=== PATIENT | female | born 1955 | race Caucasian/White ===

== ENCOUNTER → 2018-11-14 | Day surgery (SDC) | payer MEDICARE ==
[2018-11-08 10:46] VITALS: BMI 25.1
[~2018-11-14] MED LIST: BACITRACIN OINT 1 EACH PACKET TOPICAL ONE; CLINDAMYCIN 600 MG in DEXTROSE 5% IN WATER 50 ML IVPB ONE; DEXAMETHASONE SOD PHOSPHATE 4 MG/ML 1 ML VIAL IV ONE; FAMOTIDINE 20 MG/2 ML VIAL IV ONE; LACTATED RINGERS 1,000 ML IV SCH; LIDOCAINE 1% 20 ML VIAL (10MG/ML) FOR IV START IV ONE; LIDOCAINE 1% INJ 10MG/ML (20 ML MDV) ONE; LIDOCAINE 1%-EPI 1:100,000 20 ML VIAL SQ ONE; MIDAZOLAM 2 MG/2 ML VIAL IVP ONE; MIDAZOLAM 2 MG/2 ML VIAL ONE; ONDANSETRON 4 MG/2 ML VIAL IVP ONE; PROPOFOL 10 MG/ML 20 ML VIAL IV ONE; SODIUM BICARB 8.4% 50 ML VIAL (1 MEQ/ML) MISCELLANE ONE; SUCCINYLCHOLINE CHLORIDE 100 MG/5 ML SYR IV ONE; ePHEDrine SULFATE/0.9% NACL/PF 50 MG/5 ML SYRINGE IV ONE; fentaNYL (PF) 50 MCG/ML 2 ML AMP ONE; traMADol 50 MG TAB PO ONE
--- NOTE | 2018-11-14 10:53 | P.OP ---
Date of Procedure: 11/14/18 Preoperative Diagnosis: Left preauricular nodule Postoperative Diagnosis: Same Procedure(s) Performed: Excision left preauricular nodule with EMG facial nerve monitoring Anesthesia: KAITYA Surgeon: Wili Neal Estimated Blood Loss (ml): 2 Pathology: other (Left preauricular nodule) Condition: stable Disposition: PACU Indications for Procedure: This 63-year-old white female whose had a chronic subcutaneous nodule left preauricular which has been tender. 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 Operative Findings: Small approximate 5 mm subcutaneous nodule left preauricular with temporal artery noted and therefore temporal artery biopsy also performed Description of Procedure: Patient brought in the operative suite and placed in a supine position. Patient underwent induction of general anesthesia with oral endotracheal intubation without difficulty. Patient prepped and draped in usual aseptic fashion with NIM II facial nerve monitor placed to monitor the frontalis and temporal branches of the facial nerve. This monitor was tested and was working well. A linear superior preauricular incision was made in the direction of the rectus skin tension lines and was carried sharply through skin and subcutaneous tissue. There was a small nodular area lymph node grossly and was excised. Coarsening adjacent to this was the temporal artery and due to the patient's quite extreme tenderness preoperatively and a small segment of temporal artery was also excised with the ligations superior to inferior to this performed with 3-0 V icryl ties. This was sent with specimen also. Good hemostasis was noted. The facial nerve was working well with facial nerve stimulator at 0.5 mA which was noted anterior to the surgical field. Subcutaneous layer was closed with inverted interrupted 4-0 Vicryl suture and skin closed with running locking 5-0 Prolene suture. Bacitracin ointment and a sterile dressing were placed. The patient was allowed to emerge from general anesthesia having tolerated procedure well and was transferred to the postop recovery area in satisfactory condition.
[2018-11-14 10:58] VITALS: TEMP 98
[2018-11-14] MEDS: HYDROmorphone 1 MG/ML 1 ML SYRINGE IVP ONE ×2 (11:12→11:19)
[2018-11-14 12:09] VITALS: BP 134/81; PULSE 104; RESP 18
== END | disposition home or self-care (01) ==
LOC: OR 06:48
PROVIDERS: ATTEND Otolaryngology
DX: R22.0 Localized swelling, mass and lump, head (principal); K21.9 Gastro-esophageal reflux disease without esophagitis; I50.9 Heart failure, unspecified; I10 Essential (primary) hypertension; Z90.49 Acquired absence of other specified parts of digestive tract; Z79.891 Long term (current) use of opiate analgesic; Z79.52 Long term (current) use of systemic steroids; Z79.899 Other long term (current) drug therapy; Z88.5 Allergy status to narcotic agent; Z87.820 Personal history of traumatic brain injury; Z88.0 Allergy status to penicillin; Z88.2 Allergy status to sulfonamides; Z88.8 Allergy status to other drugs, medicaments and biological substances; Z87.19 Personal history of other diseases of the digestive system; Z85.3 Personal history of malignant neoplasm of breast; Z85.43 Personal history of malignant neoplasm of ovary; Z90.710 Acquired absence of both cervix and uterus; J30.89 Other allergic rhinitis
CPT/HCPCS: 69399; 88305; J2250; J1100; J2405; J2001; J3010; J1170; J0330; J2704